=== PATIENT | female | born 1955 | race Caucasian/White ===

== ENCOUNTER 2018-05-01 12:34 | Emergency (ER) | payer OTHER ==
[~2018-05-01] VITALS: Ht 172.7 cm; Wt 81.6 kg
--- NOTE | 2018-05-01 13:05 | NUR ---
PT IS IN ROOM #1B. DR TYSON EVALUATED THE PT.
[2018-05-01] MEDS ORDERED: OMEG100019 PO (13:14)
[2018-05-01] MEDS ORDERED: LOSA25TA13 PO (13:14)
[2018-05-01] MEDS ORDERED: FLUT16SP NS (13:14)
[2018-05-01] MEDS ORDERED: PENI IM (13:14)
[2018-05-01] MEDS ORDERED: ASPI81TA31 PO (13:14)
[2018-05-01] MEDS ORDERED: ATOR40TA PO (13:14)
[2018-05-01] MEDS ORDERED: LORA10TA7 PO (13:14)
[2018-05-01] MEDS ORDERED: CHOL20004 PO (13:14)
[2018-05-01] MEDS ORDERED: PROP40TA7 PO (13:14)
[2018-05-01] MEDS ORDERED: SODI50SP NS (13:14)
[2018-05-01 13:38] LABS: BASOPHILS # (AUTO) 0.1 K/uL (0.0-8.0); EOSINOPHILS % (AUTO) 0.8 % (0.0-7.0); HEMATOCRIT 40.5 % (31.2-41.9); HEMOGLOBIN 13.9 g/dL (10.9-14.3); LYMPHOCYTES # (AUTO) 2.2 K/uL (20.0-40.0); MEAN CORPUSCULAR HEMOGLOBIN 31.1 uug (24.7-32.8); MEAN CORPUSCULAR HGB CONC 34 g/dL (32.3-35.6); MEAN CORPUSCULAR VOLUME 90.6 fL (75.5-95.3); MONOCYTES # (AUTO) 0.5 K/uL (2.0-10.0); MONOCYTES % (AUTO) 7.8 % (0.0-11.0); NEUTROPHILS # (AUTO) 3.3 K/uL (1.8-8.9); NEUTROPHILS % (AUTO) 54.4 % (38.5-71.5); PLATELET COUNT (AUTO) 253 K/uL (179-408); RED BLOOD CELL COUNT(AUTO) 4.47 MIL/uL (3.63-4.92)
[2018-05-01 13:41] LABS: CREATININE 0.6 mg/dL (0.6-1.3); POTASSIUM 3.3 mmol/L (3.5-5.1)
[2018-05-01] MEDS ORDERED: POTASSIUM CHLORIDE 20 MEQ TAB.PRT.SR PO ONE (14:00)
[2018-05-01] MEDS ORDERED: POTASSIUM CHLORIDE 20 MEQ TAB.PRT.SR ONE (14:07)
[2018-05-01] MEDS ORDERED: KETOROLAC TROMETHAMINE 30 MG INJ IM ONE (14:30)
[2018-05-01] MEDS ORDERED: KETOROLAC TROMETHAMINE 30 MG INJ ONE (14:33)
--- NOTE | 2018-05-01 15:36 | NUR ---
PT WAS D/C TO HOME. D/C INSTRUCTIONS GIVEN TO THE PT BY DR TYSON.
[2018-05-01 15:39] VITALS: BP 138/72
== END 2018-05-01 15:40 | disposition home or self-care (01) ==
LOC: ER 12:34
DX: R51 Headache (principal); R00.2 Palpitations; H53.8 Other visual disturbances; R06.00 Dyspnea, unspecified; I10 Essential (primary) hypertension; E78.00 Pure hypercholesterolemia, unspecified; Z88.5 Allergy status to narcotic agent
CPT/HCPCS: 36415; 71045; 80048; 84443; 85025; 85379; 85651; 93005; 96372; 99285; A4663; J1885

== ENCOUNTER 2019-01-13 12:02 | Emergency (ER) | payer OTHER ==
[~2019-01-13] VITALS: Ht 162.6 cm; Wt 72.6 kg
[~2019-01-13 12:02] MED LIST: ASPI81TA31 PO; ATOR40TA PO; CHOL20004 PO; FLUT16SP NS; LORA10TA7 PO; LOSA25TA27 PO; OMEG100019 PO; PENI IM; PROP40TA7 PO; SODI50SP NS
[2019-01-13] MEDS ORDERED: AMOX250T PO (12:21)
[2019-01-13] MEDS ORDERED: ATOR40TA PO (12:21)
[2019-01-13] MEDS ORDERED: PROP80CA PO (12:21)
[2019-01-13] MEDS ORDERED: METF-440 PO (12:21)
--- NOTE | 2019-01-13 12:24 | NUR ---
DR SIERRA AT THE BEDSIDE FOR MSE.
[2019-01-13] MEDS ORDERED: CEFTRIAXONE 1 G VIAL IM ONE (12:30)
[2019-01-13] MEDS ORDERED: ONDANSETRON 4 MG/2 ML VIAL IM ONE (12:30)
[2019-01-13] MEDS ORDERED: HYDROMORPHONE 1 MG/1 ML DISP.SYRIN IM ONE (12:30)
[2019-01-13] MEDS ORDERED: HYDROMORPHONE 1 MG/1 ML DISP.SYRIN ONE (12:35)
[2019-01-13] MEDS ORDERED: ONDANSETRON 4 MG/2 ML VIAL ONE (12:35)
[2019-01-13] MEDS ORDERED: LIDOCAINE HCL 1% 20 ML VIAL ONE (12:35)
[2019-01-13] MEDS ORDERED: CEFTRIAXONE 1 G VIAL ONE (12:36)
[2019-01-13 12:50] VITALS: BP 133/85
--- NOTE | 2019-01-13 12:50 | NUR ---
Patient discharged to home in stable conditon. Written and verbal after care instructions given. Patient verbalizes understanding of instructions.
== END 2019-01-13 12:51 | disposition home or self-care (01) ==
LOC: ER 12:04
DX: J32.9 Chronic sinusitis, unspecified (principal); G89.18 Other acute postprocedural pain; I10 Essential (primary) hypertension; E11.9 Type 2 diabetes mellitus without complications; E78.00 Pure hypercholesterolemia, unspecified; Z88.5 Allergy status to narcotic agent; Z88.8 Allergy status to other drugs, medicaments and biological substances; Z79.2 Long term (current) use of antibiotics; Z79.899 Other long term (current) drug therapy; Z79.82 Long term (current) use of aspirin
CPT/HCPCS: 96372 ×3; 99283; J0696; J1170; J2405; J3490; A4663

== ENCOUNTER 2019-01-14 01:57 | Emergency (ER) | payer OTHER ==
[~2019-01-14] VITALS: Ht 162.6 cm; Wt 72.6 kg
[~2019-01-14 01:57] MED LIST changes: +AMOX250T PO; +METF-440 PO; +PROP80CA PO
[2019-01-14] MEDS ORDERED: IV NORMAL SALINE 1000 ML BAG IV ONE (02:30)
[2019-01-14] MEDS ORDERED: ONDANSETRON 4 MG/2 ML VIAL IV ONE (02:30)
[2019-01-14 02:44] LABS: BASOPHILS # (AUTO) 0.1 K/uL (0.0-8.0); BASOPHILS % (AUTO) 0.6 % (0.0-2.0); EOSINOPHILS % (AUTO) 0.4 % (0.0-7.0); HEMOGLOBIN 11.6 g/dL (10.9-14.3); LYMPHOCYTES # (AUTO) 1.8 K/uL (20.0-40.0); LYMPHOCYTES % (AUTO) 19.2 % (20.5-51.5); MEAN CORPUSCULAR HEMOGLOBIN 30.5 uug (24.7-32.8); MEAN CORPUSCULAR HGB CONC 34 g/dL (32.3-35.6); MEAN CORPUSCULAR VOLUME 89.2 fL (75.5-95.3); MONOCYTES # (AUTO) 0.9 K/uL (2.0-10.0); MONOCYTES % (AUTO) 10.3 % (0.0-11.0); NEUTROPHILS # (AUTO) 6.4 K/uL (1.8-8.9); NEUTROPHILS % (AUTO) 69.5 % (38.5-71.5); PLATELET COUNT (AUTO) 259 K/uL (179-408); RED BLOOD CELL COUNT(AUTO) 3.81 MIL/uL (3.63-4.92); WHITE BLOOD COUNT (AUTO) 9.2 K/uL (3.8-11.8)
[2019-01-14] MEDS ORDERED: ONDANSETRON 4 MG/2 ML VIAL ONE ×2 (02:44→03:17)
[2019-01-14 03:08] LABS: CREATININE 0.6 mg/dL (0.6-1.3); POTASSIUM 3.6 mmol/L (3.5-5.1)
[2019-01-14 03:14] LABS: BILIRUBIN,DIRECT 0.2 mg/dL (0.0-0.2); BILIRUBIN,TOTAL 0.9 mg/dL (0.2-1.0); TOTAL PROTEIN, SERUM 7.6 g/dL (6.4-8.2)
[2019-01-14] MEDS ORDERED: ONDANSETRON IV *ER 4 MG/2 ML VIAL IV ONE (03:15)
--- NOTE | 2019-01-14 04:11 | NUR ---
Patient discharged to home in stable conditon. Written and verbal after care instructions given. Patient verbalizes understanding of instructions.
== END 2019-01-14 04:18 | disposition home or self-care (01) ==
LOC: ER 01:59
DX: R11.2 Nausea with vomiting, unspecified (principal); G89.18 Other acute postprocedural pain; I10 Essential (primary) hypertension; E11.9 Type 2 diabetes mellitus without complications; E78.00 Pure hypercholesterolemia, unspecified; Z88.5 Allergy status to narcotic agent; Z88.8 Allergy status to other drugs, medicaments and biological substances; Z79.82 Long term (current) use of aspirin; Z79.2 Long term (current) use of antibiotics; Z79.899 Other long term (current) drug therapy
CPT/HCPCS: 36415; 80048; 80076; 83690; 85025; 96361; 96374; 96376; 99283; J2405 ×2; A4663; J7030

== ENCOUNTER 2019-08-30 23:03 | Emergency (ER) | payer MEDICARE, OTHER ==
[~2019-08-30] VITALS: Ht 162.6 cm; Wt 72.1 kg
[~2019-08-30 23:03] MED LIST changes: -PROP80CA PO; +PROP80CA51 PO
[2019-08-30] MEDS ORDERED: OFLO5DRO3 OP (23:22)
[2019-08-30] MEDS ORDERED: NORT10CA PO (23:22)
[2019-08-30] MEDS ORDERED: AMOX-427 PO (23:22)
--- NOTE | 2019-08-30 23:30 | NUR ---
Patient walked into ER A/Ox3 c/o MALONEY for 5 days. Denies N/V and CP.
[2019-08-31] MEDS ORDERED: KETOROLAC TROMETHAMINE 15 MG INJ ONE (00:10)
[2019-08-31] MEDS ORDERED: METOCLOPRAMIDE HCL 10 MG/2 ML VIAL ONE (00:10)
[2019-08-31] MEDS ORDERED: diphenhydrAMINE 50 MG/1 ML VIAL ONE (00:10)
[2019-08-31 00:15] LABS: *BILIRUBIN,URIN NEGATIVE (NEGATIVE); *CLARITY,URINE CLEAR (CLEAR); *COLOR,URINE YELLOW (YELLOW); *KETONES,URINE NEGATIVE (NEGATIVE); *UROBILINOGEN,URINE 0.2 E.U./dl (NORMAL); LEUKOCYTE ESTERASE ,URINE TRACE (NEGATIVE); NITRITE, URINE NEGATIVE (NEGATIVE); PH,URINE 7.5 (5.0-8.0); UGLUCOSE NEGATIVE (NEGATIVE)
[2019-08-31] MEDS ORDERED: diphenhydrAMINE 50 MG/1 ML VIAL IV ONE (00:15)
[2019-08-31] MEDS ORDERED: KETOROLAC TROMETHAMINE 15 MG INJ IVP ONE (00:15)
[2019-08-31] MEDS ORDERED: METOCLOPRAMIDE HCL 10 MG/2 ML VIAL IV ONE (00:15)
[2019-08-31] MEDS ORDERED: IV NORMAL SALINE 1000 ML BAG IV ONE (00:15)
[2019-08-31 00:16] LABS: BASOPHILS # (AUTO) 0.1 K/uL (0.0-8.0); BASOPHILS % (AUTO) 1.2 % (0.0-2.0); EOSINOPHILS # (AUTO) 0.1 K/uL (0.0-0.7); EOSINOPHILS % (AUTO) 1.6 % (0.0-7.0); HEMATOCRIT 42.3 % (31.2-41.9); HEMOGLOBIN 14.2 g/dL (10.9-14.3); LYMPHOCYTES # (AUTO) 2.3 K/uL (20.0-40.0); LYMPHOCYTES % (AUTO) 32.4 % (20.5-51.5); MEAN CORPUSCULAR HEMOGLOBIN 30.5 uug (24.7-32.8); MEAN CORPUSCULAR HGB CONC 34 g/dL (32.3-35.6); MEAN CORPUSCULAR VOLUME 90.7 fL (75.5-95.3); MONOCYTES # (AUTO) 0.7 K/uL (2.0-10.0); MONOCYTES % (AUTO) 9.8 % (0.0-11.0); NEUTROPHILS # (AUTO) 3.9 K/uL (1.8-8.9); PLATELET COUNT (AUTO) 268 K/uL (179-408); RED BLOOD CELL COUNT(AUTO) 4.67 MIL/uL (3.63-4.92); WHITE BLOOD COUNT (AUTO) 7.2 K/uL (3.8-11.8)
--- NOTE | 2019-08-31 00:17 | NUR ---
Patient out of unit for ct scan via gurny
--- NOTE | 2019-08-31 00:23 | NUR ---
Patient back from ct scan with no distress noted.
[2019-08-31 00:27] LABS: *BLOOD, URINE NEGATIVE (NEGATIVE)
[2019-08-31 00:36] LABS: BILIRUBIN,DIRECT 0.1 mg/dL (0.0-0.2); BILIRUBIN,TOTAL 0.6 mg/dL (0.2-1.0); CREATININE 0.6 mg/dL (0.6-1.3); POTASSIUM 3.4 mmol/L (3.5-5.1)
[2019-08-31 00:44] LABS: BACTERIA,URINE NONE SEEN /HPF (NONE SEEN); RBC,URINE 0-3 /HPF (0-3)
[2019-08-31 00:45] LABS: SQUAMOUS EPITHELIAL CELL,UR FEW /HPF (NONE SEEN)
--- NOTE | 2019-08-31 01:00 | NUR ---
Patient states MALONEY is 3/10 from 8/10 pain at this time.
--- NOTE | 2019-08-31 02:24 | NUR ---
IV removed. Catheter intact and site benign. Pressure and 4x4 gauze applied to site. No bleeding noted.
[2019-08-31 02:28] VITALS: BP 147/94
--- NOTE | 2019-08-31 02:33 | NUR ---
Patient discharged to home in stable conditon with daughter taking patient home. Written and verbal after care instructions given. Patient verbalizes understanding of instructions. Walked out of ER with no distress noted.
== END 2019-08-31 02:35 | disposition home or self-care (01) ==
LOC: ER 23:03
DX: R51 Headache (principal); J01.90 Acute sinusitis, unspecified; R42 Dizziness and giddiness; I10 Essential (primary) hypertension; E11.9 Type 2 diabetes mellitus without complications; E78.5 Hyperlipidemia, unspecified; Z88.5 Allergy status to narcotic agent; Z88.8 Allergy status to other drugs, medicaments and biological substances; Z79.82 Long term (current) use of aspirin; Z79.2 Long term (current) use of antibiotics; Z79.899 Other long term (current) drug therapy
CPT/HCPCS: 36415; 70450; 80048; 80076; 81000; 81001; 85025; 85651; 93005; 96361; 96374; 96375; 99284; J1200; J1885; J2765; A4663; J7030

== ENCOUNTER 2021-04-05 23:39 | Emergency (ER) | payer SELFPAY ==
[~2021-04-05 23:39] MED LIST changes: +AMOX-427 PO; -AMOX250T PO; -ASPI81TA31 PO; -FLUT16SP NS; -LORA10TA7 PO; -LOSA25TA27 PO; -METF-440 PO; +NORT10CA PO; +OFLO5DRO3 OP; -PENI IM; -PROP40TA7 PO; -SODI50SP NS
--- NOTE | 2021-04-05 23:50 | NUR ---
Patient went to registration window and stated "I don't want to be seen anymore. I am going to my assign hospital." Patient left without being seen by ERMD or triaged.
== END 2021-04-06 | disposition left against medical advice (07) ==
LOC: ER 23:48
DX: Z53.21 Procedure and treatment not carried out due to patient leaving prior to being seen by health care provider (principal)